=== PATIENT | female | born 1995 | race Caucasian/White ===

== ENCOUNTER 2024-06-12 12:22 | Emergency (ER) | payer OTHER, SELFPAY ==
[2024-06-12 12:23] VITALS: BP 125/88
[2024-06-12 12:46] LABS: % Basophils 0.5 % (0-2); % Eosinophils 1.2 % (0-6); % Immature Granulocytes 0.3 % (0-0.5); % Lymphocytes 37.5 % (20.5-51.1); % Monocytes 7.2 % (1.7-9.3); % Neutrophils 53.3 % (42.2-75.2); Absolute Eosinophils 0.1 10^3/uL (0-0.7); Absolute Lymphocytes 2.9 10^3/uL (1.2-3.4); Absolute Monocytes 0.6 10^3/uL (0.1-0.6); Absolute Neutrophils 4.1 10^3/uL (1.4-6.5); Hematocrit 39.9 % (37.0-47.0); Mean Corp Hgb Conc. 35.1 g/dL (33.0-37.0); Mean Corpuscular Hgb 30.6 pg (27.0-31.0); Mean Corpuscular Volume 87.1 fL (81.0-99.0); Nucleated Red Blood Cells % 0 %; Platelet Count 274 10^3/uL (130-400); Red Blood Cell Count 4.58 10^6/uL (4.20-5.40); Red Cell Dist. Width 12.5 % (11.5-14.5); White Blood Cell Count 7.6 10^3/uL (4.8-10.8)
[2024-06-12 12:58] LABS: HCG, Serum Qualitative Screen Negative
[2024-06-12 13:01] LABS: ALT (SGPT) 15 U/L (0-35); AST (SGOT) 24 U/L (14-36); Albumin 4.9 g/dl (3.5-5.0); Alkaline Phosphatase 46 U/L (38-126); Blood Urea Nitrogen 17 mg/dl (7-17); Calcium 9.8 mg/dl (8.4-10.2); Carbon Dioxide 27 mmol/L (22-30); Chloride 99 mmol/L (98-107); Glucose 104 mg/dl (70-99); Potassium 4.1 mmol/L (3.5-5.1); Sodium 136 mmol/L (135-145); Total Bilirubin 0.6 mg/dl (0.2-1.3); Total Protein 7.1 g/dl (6.3-8.2); eGFR > 60.00
--- NOTE | 2024-06-12 14:57 | ED.GENMED ---
History of Present Illness
General
Chief Complaint: Vaginal Bleeding
Source: patient
Time Seen by Provider: 06/12/24 14:03
History of Present Illness
History of Present Illness:
29-year-old female with no significant past medical history presenting to the emergency department for evaluation of vaginal bleeding that started 4 days prior to her menstrual, has gotten gradually worse over the last 2 days and today reports going
through for tampons in approximately 3 hours prompting her to come to the ER. Patient had an appointment scheduled with her [facility] [facility] but was concerned with the amount of bleeding so decided to come to the ER instead. She does note some lower abdominal
cramping associated with this but otherwise denies any lightheadedness, dizziness, episodes of near syncope, chest pain or shortness of breath. She denies any use of anticoagulants or oral contraceptives. Denies any history of similar. She does
note she does take iron supplements during her menstrual due to somewhat heavier menstrual's.
Past History
Past History
ED Past Medical History: None
ED Past Surgical History: None
Social History
Tobacco: Non-smoker
Alcohol: None
Drug: None
Personal:
Living: with family
Review of Systems
Review of Systems
All Other Systems: ROS reviewed and negative except as documented in HPI and ROS
Phy Exam
Physical Exam
Physical Exam:
GENERAL: Alert , in no apparent distress
EYE: clear conjunctiva b/l
HEAD: NCAT
ENT: o/p clr, mmm.
ABDOMEN: Soft, without focal tenderness, no r/g, no cvat
PELVIC EXAM: Chaperoned by ED RN Mayra, small dark red oozing from the cervix but no active bleeding. Very small clot cleaned out with Q-tip. No vaginal wall lacerations noted
NEUROLOGICAL: Alert and oriented
SKIN: Warm and dry, skin intact.
MUSCULOSKELETAL: No edema, well perfused.
PSYCH: Normal and appropriate interaction.
Scores
Heart Failure Risk
Heart Failure Risk Score: Not Applicable
Heart Score for Chest Pain Patients
STEMI patient?: Not applicable
Withdrawal Assessment of Alcohol
Withdrawal Assessment Completed?: Not applicable
Course
Orders/Labs/Results
Orders:
Orders
06/12/24 12:27
Test Result ONCE
06/12/24 12:31
Type And Crossmatch [Type+Screen] Urgent
Complete Blood Count/With Diff Urgent
Comprehensive Metabolic Panel Urgent
HCG, Serum Qualitative Screen Urgent
06/12/24 12:49
ABO2 Urgent
BBK Wristband Number:
Associate notified that ABO2 has been ordered: [id number]
Date: 06/12/24
Time: 12:49
Information Assoc ID: [id number]
Abnormal Lab Results
06/12/24
12:31
Glucose 104 H mg/dl
(70-99)
06/12/24 12:31
06/12/24 12:31
Vital Signs
Initial and Last Documented VS:
Initial Vital Signs
Temp Pulse Resp BP Pulse Ox
99.6 F 106 16 125/88 98
06/12/24 12:23 06/12/24 12:23 06/12/24 12:23 06/12/24 12:23 06/12/24 12:23
Last Documented Vital Signs
Temp Pulse Resp BP Pulse Ox
99.6 F 106 16 125/88 98
06/12/24 12:23 06/12/24 12:23 06/12/24 12:23 06/12/24 12:23 06/12/24 12:23
MDM/Problems Addressed
Differential Diagnosis Includes:
Fibroid uterus, heavier menstrual bleeding, anemia,
MDM/Problems Addressed:
29-year-old female presenting to the ER for evaluation of menstrual bleeding that began 4 days prior to her expected menstrual, heavier than usual, today had gone through 4 pads in approximately 3 hours. Labs performed showing patient has a
hemoglobin of 14. Hemodynamically stable. Given no active bleeding at this time I do feel it is reasonable for patient to be discharged home and follow-up with her [facility] as an outpatient. Will start patient on a 5-day course of Lysteda. Patient
otherwise stable for discharge home and aware of return precautions.
*Pulse Oximetry
Patient hypoxic: no
*Critical Care Note
Total Time (30-74mins, 75-104mins- exclusive of procedures): Not Applicable
Data Reviewed
Further Testing Considered But Not Given:
Discussed US pelvis. Patient okay to perform as outpatient
ED Attending Note
-
Portions of this chart may have been created with voice recognition software.� Occasional wrong word or��sound alike� substitutions may have occurred due to the inherent limitations of voice recognition software.
Discharge Plan
Departure
Patient Disposition: Home (Routine Discharge)
Date of Disposition: 06/12/24
Time of Disposition: 14:57
Patient with high blood pressure during this ER visit?: No
Discharge Problem:
Dysfunctional uterine bleeding
Instructions: Heavy Periods (DC)
Prescriptions:
New
tranexamic acid 650 mg tablet
650 mg PO TID 5 Days Qty: 15 0RF
Referrals:
Trena Chavez CRNP [Family Provider] -
Interventions
Interventions:
*Risk Screen - Suicide Last Done: 06/12/24 13:30
*General Assessment Last Done: 06/12/24 13:30
*Neglect/Abuse Screening Last Done: 06/12/24 15:36
*ED COVID-19 Vaccine History Last Done: 06/12/24 13:30
*Nursing Disposition Last Done: 06/12/24 15:36
ED-Female Genitourinary Assessment Last Done: 06/12/24 13:30
Discharge Date and Time
Print Language: GUAMANIAN
[2024-06-12 15:36] VITALS: BP 125/90
== END 2024-06-12 15:38 | disposition home or self-care (01) ==
LOC: EMR 12:22
PROVIDERS: Student in an Organized Health Care Education/Training Program; EMERGENCY PHYSICIAN Emergency Medicine; FAMILY PHYSICIAN Nurse Practitioner Adult Health
DX: N93.8 Other specified abnormal uterine and vaginal bleeding (principal); R10.30 Lower abdominal pain, unspecified
CPT/HCPCS: 99283; 80053; 84703; 85025; 86850; 86900; 86901

== ENCOUNTER → 2024-06-27 10:21 | Outpatient (REF) | payer OTHER, SELFPAY | LOC: HWRAD 10:21 | PROVIDERS: ATTENDING PHYSICIAN Obstetrics & Gynecology; FAMILY PHYSICIAN Internal Medicine | DX: N93.9 Abnormal uterine and vaginal bleeding, unspecified (principal) | CPT/HCPCS: 76830; 76856 ==